=== PATIENT | female | born 1985 | race Hispanic/Latino ===

== ENCOUNTER 2018-01-28 22:17 | Emergency (ER) | payer OTHER ==
--- NOTE | 2018-01-28 23:56 | ED HAND/WRIST INJURY COMPLAINT ---
History of Present Illness General Chief Complaint: Hand or Wrist Injury Stated Complaint: RIGHT HAND SWELLING Source: patient Exam Limitations: no limitations Vital Signs & Intake/Output Vital Signs & Intake/Output Vital Signs Date Time Temp Pulse Resp B/P B/P Pulse O2 O2 Flow FiO2 Mean Ox Delivery Rate 01/29 0004 98.2 76 16 136/88 98 Room Air ED Intake and Output 01/29 0000 01/28 1200 Intake Total 0 Output Total Balance 0 Intake, Oral 0 Patient 145 lb Weight Weight Reported by Patient Measurement Method Allergies Coded Allergies: NO KNOWN ALLERGIES (01/28/12) Triage Note: PT HAD CYST REMOVED RIGHT MIDDLE FINGER YESTERDAY WITH LOCAL ANESTHETIC. HAS [address], CLEAN, DRY, INTACT. REPORTS INCREASING PAIN, SWELLING TO SAME FINGER AND PALM OF HAND TODAY. ALSO REPORTS A TINGLY FEELING IN SAME FINGER. CALLED PLASTIC SURGEON WHO TOLD PT TO COME TO ED FOR EVAL. TAKING TYLENOL/MOTRIN W/O RELIEF. NO REDNESS, WARMTH NOTED. Triage Nurses Notes Reviewed? yes Occurred: just prior to arrival Duration: day(s): Timing: recent history Injury Environment: home : No Patient currently breastfeeds: No HPI: 32-year-old female comes into the emergency room for right hand swelling. Patient reports that she had a cyst removed from her right hand yesterday. Her right middle finger. Denies any redness or discharge fever chills body aches. Some associated swelling of the middle finger and the surrounding fingers. Denies any other associated symptoms. (Vinny Watkins) Past History Travel History Traveled to [place] past 21 day No Medical History Any Pertinent Medical History? none Surgical History Surgical History: non-contributory Psychosocial History What is your primary language Pashto Tobacco Use: Never used Family History Hx Contributory? No (Vinny Watkins) Review of Systems Review of Systems Constitutional: Reports: no symptoms. EENTM: Reports: no symptoms. Respiratory: Reports: no symptoms. Cardiovascular: Reports: no symptoms. GI: Reports: no symptoms. Genitourinary: Reports: no symptoms. Musculoskeletal: Reports: see HPI. Skin: Reports: no symptoms. Neurological/Psychological: Reports: no symptoms. Hematologic/Endocrine: Reports: no symptoms. Immunologic/Allergic: Reports: no symptoms. All Other Systems: Reviewed and Negative (Vinny Watkins) Physical Exam Physical Exam General Appearance: well developed/nourished, mild distress Head: atraumatic Eyes: Bilateral: normal appearance. Ears, Nose, Throat: normal ENT inspection, hearing grossly normal Neck: normal inspection Cardiovascular/Respiratory: no respiratory distress Back: normal inspection Hand Left: normal inspection Hand Right: swelling, 2nd finger, 3rd finger, 4th finger, no erythema, no discharge, limited range of motion, difficulty with extension, Neurologic/Tendon: normal sensation, responds to pain, no evidence tendon injury , no pulse deficit Skin: intact, normal color, warm/dry (Vinny Watkins) Progress Differential Diagnosis: abscess, cellulitis, compartment syndrome, septic arthritis Plan of Care: 01/29/2018 4:48:18 PM Patient clinically looks well. In no apparent distress. No signs of postoperative infection. I feel the swelling is likely normal postoperative swelling. She had done yesterday. She can follow up with her plastic surgeon this week. No need for antibiotics. Stable for discharge (Vinny Watkins) Departure Departure Disposition: HOME OR SELF CARE Condition: Stable Clinical Impression Primary Impression: Encounter for postoperative wound check Referrals: Patient Has No Primary Care Dr (PCP/Family) Additional Instructions: Follow-up with plastic surgeon this week. Return if any concerns worsening symptoms. Please go over all results of today's visit with your primary care doctor. Contact your primary care doctor to let them know you were here in the emergency room. There may be nonspecific findings which may not be related to your visit today here in the emergency room but may require further evaluation and chronic monitoring by your primary care doctor. If you had a laceration today the chance of foreign body always remains. You should follow-up with your primary care doctor for recheck in 3-5 days for a wound check. If you had an x-ray done there is a chance that a fracture could have been missed on initial read and you should follow-up with your primary care doctor for repeat x-rays if symptoms persist. If your blood pressure was elevated here in the emergency room please have rechecked by [facility] primary care doctor within the next 48. If you were prescribed a narcotic here in the emergency room or any type of controlled substances you're not allowed to drive while taking this medication or operate any type of heavy machinery. Narcotics can make you feel lightheaded dizziness nausea and can cause constipation. You may need to pickling drum operator a stool softener. Thank you for choosing [facility] emergency room. Please return to the emergency room immediately if you have any other concerns worsening of symptoms. Departure Forms: Customer Survey General Discharge Information (Vinny Watkins) PA/STAGE DIRECTOR Co-Sign Statement Statement: ED Attending supervision documentation- I saw and evaluated the patient. I have also reviewed all the pertinent lab results and diagnostic results. I agree with the findings and the plan of care as documented in the PA's/STAGE DIRECTOR's documentation. x I have reviewed the ED Record and agree with the PA's/STAGE DIRECTOR's documentation. [] Additions or exceptions (if any) to the PAs/STAGE DIRECTOR's note and plan are summarized below: [] (Gabi LOTT,Wilian)
[2018-01-29 00:04] VITALS: BP 136/88
== END 2018-01-29 00:06 ==
LOC: ERH 22:17
DX: M79.89 Other specified soft tissue disorders (principal)